=== PATIENT | male | born 1975 | race African-American/Black ===

== ENCOUNTER 2018-09-17 00:32 | Emergency (ER) | payer MEDICAID ==
[~2018-09-17] VITALS: Ht 165.1 cm; Wt 97.5 kg
[2018-09-17 00:39] VITALS: BP 136/86
--- NOTE | 2018-09-17 00:41 | NUR ---
ED Nurse Note: Patient walked in to ER c/o right testicle pain 07/07 x 2 month. AAO x4, VSS at this time, skin is intact warm to touch.
[2018-09-17 01:10] LABS: APPEARANCE,URINE CLEAR; BILIRUBIN, URINE NEGATIVE (NEGATIVE); GLUCOSE, URINE (UA) NEGATIVE (NEGATIVE); KETONES,URINE 1+ (NEGATIVE); LEUKOCYTE ESTERASE ,URINE 1+ (NEGATIVE); NITRITE,URINE NEGATIVE (NEGATIVE); PH,URINE 5 (4.5-8.0); PROTEIN,URINE NEGATIVE (NEGATIVE); UROBILINOGEN,URINE NORMAL MG/DL (0.0-1.0)
[2018-09-17 01:11] LABS: COLOR,URINE YELLOW
[2018-09-17] MEDS ORDERED: IBUPROFEN600 MG ORAL (01:15)
--- NOTE | 2018-09-17 01:16 | Emergency Room Report ---
History of Present Illness General Chief Complaint: Male Urogenital Problems Source: Patient Present Illness HPI This is a 43-year-old male with no past medical history. He presents with chief complaint of right scrotum/testicular pain. This is an ongoing issue for over 7 months. He has been to several ERs for this. He has seen a urologist for this also. Ultrasounds have been negative for torsion. No varicocele or cystocele based on patient description. He has no discharge. Localized to the right side. Complaining of some numbness and decreased sensation on the scrotal aspect. Denies any other complaint. Because of the continued pain he came here for another opinion. Allergies: Coded Allergies: No Known Allergies (Unverified , 09/17/18) Patient History Past Medical History: see triage record, old chart reviewed Past Surgical History: none Pertinent Family History: none Social History: Denies: smoking Immunizations: other Reviewed Nursing Documentation: PMH: Agreed; PSxH: Agreed Nursing Documentation-PMH Past Medical History: No Stated History Review of Systems Eye: Denies: eye pain, blurred vision ENT: Denies: ear pain, nose congestion, throat swelling Respiratory: Denies: cough, shortness of breath Cardiovascular: Denies: chest pain, palpitations Gastrointestinal: Denies: abdominal pain, diarrhea, nausea, vomiting Musculoskeletal: Denies: back pain, joint pain Skin: Denies: rash Neurological: Denies: headache, numbness Endocrine: Denies: increased thirst, increased urine Hematologic/Lymphatic: Denies: easy bruising All Other Systems: negative except mentioned in HPI Physical Exam Vital Signs Date Time Temp Pulse Resp B/P (MAP) Pulse Ox O2 Delivery O2 Flow Rate FiO2 09/17/18 00:34 97.5 86 18 136/86 (103) 98 Room Air Vitals unremarkable Sp02 EP Interpretation: reviewed, normal General Appearance: well appearing, no apparent distress, alert Head: normocephalic, atraumatic Eyes: bilateral eye PERRL, bilateral eye EOMI ENT: hearing grossly normal, normal pharynx Neck: full range of motion, supple, no meningismus Respiratory: chest non-tender, lungs clear, normal breath sounds Cardiovascular #1: regular rate, rhythm, no murmur Gastrointestinal: normal bowel sounds, non tender, no mass, no organomegaly, no bruit, non-distended Genitourinary: normal inspection, penis normal, scrotum normal Musculoskeletal: back normal, gait/station normal, normal range of motion Psychiatric: mood/affect normal Skin: warm/dry Medical Decision Making Diagnostic Impression: Primary Impression: Testicular pain, right ER Course Patient with testicular pain. I see no evidence of any abnormality on exam. Normal cremasteric reflex. No mass palpated. No evidence of any infection. I see no need for ultrasound because patient had them done before. He already seen urologist. Explained to the patient that there is not much more we can do in the ER. We will check to see if there is any UTI. Last Vital Signs Date Time Temp Pulse Resp B/P (MAP) Pulse Ox O2 Delivery O2 Flow Rate FiO2 09/17/18 00:39 97.5 18 136/86 98 Room Air 09/17/18 00:34 86 Status: unchanged Disposition: HOME, SELF-CARE Condition: Stable Scripts Ibuprofen* (MOTRIN*) 600 Mg Tablet 600 MG ORAL THREE TIMES A DAY, #30 TAB 0 Refills Prov: Oscar Ruelas MD 09/17/18 Additional Instructions: Follow-up with your doctor in 7 days. You may need another second opinion from another urologist. Return if worse. Osacr Ruelas MD Sep 17, 2018 01:16
[2018-09-17 01:41] VITALS: BP 136/86
--- NOTE | 2018-09-17 01:42 | NUR ---
ED Nurse Note: Pt cleared by health care Provider for discharge. DC instructions/prescription was given and explained to pt and verbalized understanding of teachings. All medical deviecs such as ID band removed. Pt is AAO x4, ambulatory and left with all personal belongings.
== END 2018-09-17 01:42 | disposition home or self-care (01) ==
LOC: EMR 01:29
DX: N50.811 Right testicular pain (principal)
CPT/HCPCS: 81003; 99283

== ENCOUNTER 2018-11-08 08:37 | Emergency (ER) | payer MEDICAID ==
[~2018-11-08] VITALS: Ht 165.1 cm; Wt 93.0 kg
[~2018-11-08 08:37] MED LIST: IBUPROFEN600 MG ORAL
[2018-11-08 09:00] VITALS: BP 108/70
[2018-11-08] MEDS ORDERED: Isovue-300 100ml vial INJ PRN (09:00)
[2018-11-08] MEDS ORDERED: Ketorolac 30mg Inj IV ONE (09:00)
[2018-11-08] MEDS ORDERED: Morphine Sulfate 4mg/ml Inj (IV USE ONLY) IVP ONE (09:00)
--- NOTE | 2018-11-08 09:05 | NUR ---
ED Nurse Note: pt presents with bloated feeling and left sided abd pain. 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 pt relates he hasnt vomited but occ nausea. pt tolerates lab and iv well.
[2018-11-08 09:13] LABS: APPEARANCE,URINE CLEAR; BILIRUBIN, URINE NEGATIVE (NEGATIVE); COLOR,URINE PALE YELLOW; GLUCOSE, URINE (UA) 1+ (NEGATIVE); KETONES,URINE 1+ (NEGATIVE); LEUKOCYTE ESTERASE ,URINE NEGATIVE (NEGATIVE); NITRITE,URINE NEGATIVE (NEGATIVE); PH,URINE 7 (4.5-8.0); PROTEIN,URINE 1+ (NEGATIVE); UROBILINOGEN,URINE NORMAL MG/DL (0.0-1.0)
[2018-11-08 09:20] LABS: BASOPHILS % (AUTO) 0.4 % (0.0-2.0); EOSINOPHILS % (AUTO) 0.3 % (0.0-3.0); HEMATOCRIT 44.7 % (42.0-52.0); HEMOGLOBIN 15.1 G/DL (14.2-18.0); LYMPHOCYTES % (AUTO) 9.8 % (20.0-45.0); MEAN CORPUSCULAR VOLUME 88 FL (80-99); MONOCYTES % (AUTO) 5.9 % (1.0-10.0); NEUTROPHILS % (AUTO) 83.6 % (45.0-75.0); PLATELET COUNT 214 K/UL (150-450); RED BLOOD COUNT 5.07 M/UL (4.70-6.10); RED CELL DISTRIBUTION WIDTH 11.1 % (11.6-14.8); WHITE BLOOD COUNT 9.4 K/UL (4.8-10.8)
--- NOTE | 2018-11-08 09:20 | Emergency Room Report ---
History of Present Illness General Chief Complaint: Abdominal Pain Source: Patient Present Illness HPI 43-year-old male presents ED for evaluation. Patient complaining of left-sided abdominal pain which started 2 days ago after eating. Pain is sharp, 9 out of 10, nonradiating. States he is tried [id number] medications for "gas" and states they have not helped. Denies fevers or chills. Denies chest pain or shortness of breath. No other aggravating relieving factors. Denies any other associated symptoms Allergies: Coded Allergies: No Known Allergies (Unverified , 09/17/18) Patient History Past Medical History: none Past Surgical History: none Pertinent Family History: none Social History: Denies: smoking, alcohol use, drug use Immunizations: UTD Reviewed Nursing Documentation: PMH: Agreed; PSxH: Agreed Nursing Documentation-PMH Past Medical History: No Stated History Hx Gastrointestinal Problems: Yes - fluid in the scrotum Review of Systems All Other Systems: negative except mentioned in HPI Physical Exam Vital Signs Date Time Temp Pulse Resp B/P (MAP) Pulse Ox O2 Delivery O2 Flow Rate FiO2 11/08/18 08:43 99.0 88 16 108/70 (83) 96 Room Air Sp02 EP Interpretation: reviewed, normal General Appearance: no apparent distress, alert, GCS 15, non-toxic Head: normocephalic, atraumatic Eyes: bilateral eye normal inspection, bilateral eye PERRL ENT: hearing grossly normal, normal pharynx, no angioedema, normal voice Neck: full range of motion, supple/symm/no masses Respiratory: chest non-tender, lungs clear, normal breath sounds, speaking full sentences Cardiovascular #1: regular rate, rhythm, no edema Cardiovascular #2: 2+ carotid (R), 2+ carotid (L), 2+ radial (R), 2+ radial (L) , 2+ dorsalis pedis (R), 2+ dorsalis pedis (L) Gastrointestinal: normal bowel sounds, soft, non-distended, no guarding, no rebound, tenderness - L sided abdomen Rectal: deferred Genitourinary: normal inspection, no CVA tenderness Musculoskeletal: back normal, gait/station normal, normal range of motion, non- tender Neurologic: alert, oriented x3, responsive, motor strength/tone normal, sensory intact, speech normal Psychiatric: judgement/insight normal, memory normal, mood/affect normal, no suicidal/homicidal ideation Reflexes: 3+ bicep (R), 3+ bicep (L), 3+ tricep (R), 3+ tricep (L), 3+ knee (R) , 3+ knee (L) Lymphatic: no adenopathy Medical Decision Making Diagnostic Impression: Primary Impression: Diverticulitis ER Course Hospital Course 43-year-old M presents to ED with lower abdominal pain Differential diagnoses include: appendicitis, diverticulitis, SBO, gastroenteritis Clinical course Patient placed on stretcher. shelter monitor. After initial history and physical I ordered labs, IV fluids, UA, pain medication and CT scan Labs - no leukocytosis, Hb/Hct stable. electrolytes ok. CT abdomen and pelvis - diverticulitis without abscess or perforation Discussed findings with patient. He is nontoxic, afebrile with unremarkable labs. I believe patient could be treated in outpatient setting. Patient agrees with plan. Given Cipro and Flagyl here. States he has a PMD. I feel this is a highly complex case requiring extensive working including EKG/ Rhythm strip, Xray/CT/US, Blood/urine lab work, repeat exams while in ED, and administration of strong opiates/narcotics for pain control, admission to hospital or close patient follow up. Diagnosis - divertculitis stable and discharged to home with prescription for Cipro and Flagyl and Tramadol. Followup with PMD. Return to ED if symptoms recur or worsen Labs Test 11/08/18 09:00 White Blood Count 9.4 K/UL (4.8-10.8) Red Blood Count 5.07 M/UL (4.70-6.10) Hemoglobin 15.1 G/DL (14.2-18.0) Hematocrit 44.7 % (42.0-52.0) Mean Corpuscular Volume 88 FL (80-99) Mean Corpuscular Hemoglobin 29.7 PG (27.0-31.0) Mean Corpuscular Hemoglobin Concent 33.7 G/DL (32.0-36.0) Red Cell Distribution Width 11.1 % (11.6-14.8) Platelet Count 214 K/UL (150-450) Mean Platelet Volume 4.7 FL (6.5-10.1) Neutrophils (%) (Auto) 83.6 % (45.0-75.0) Lymphocytes (%) (Auto) 9.8 % (20.0-45.0) Monocytes (%) (Auto) 5.9 % (1.0-10.0) Eosinophils (%) (Auto) 0.3 % (0.0-3.0) Basophils (%) (Auto) 0.4 % (0.0-2.0) Urine Color Pale yellow Urine Appearance Clear Urine pH 7 (4.5-8.0) Urine Specific [place] 1.005 (1.005-1.035) Urine Protein 1+ (NEGATIVE) Urine Glucose (UA) 1+ (NEGATIVE) Urine Ketones 1+ (NEGATIVE) Urine Blood Negative (NEGATIVE) Urine Nitrite Negative (NEGATIVE) Urine Bilirubin Negative (NEGATIVE) Urine Urobilinogen Normal MG/DL (0.0-1.0) Urine Leukocyte Esterase Negative (NEGATIVE) Urine RBC 0-2 /HPF (0 - 0) Urine WBC 2-4 /HPF (0 - 0) Urine Squamous Epithelial Cells Occasional /LPF Urine Bacteria Few /HPF (NONE) Sodium Level 139 MMOL/L (136-145) Potassium Level 3.6 MMOL/L (3.5-5.1) Chloride Level 101 MMOL/L (98-107) Carbon Dioxide Level 34 MMOL/L (21-32) Anion Gap 4 mmol/L (5-15) Blood Urea Nitrogen 9 mg/dL (7-18) Creatinine 1.5 MG/DL (0.55-1.30) Estimat Glomerular Filtration Rate > 60 mL/min (>60) Glucose Level 131 MG/DL (74-106) Calcium Level 8.7 MG/DL (8.5-10.1) Total Bilirubin 1.1 MG/DL (0.2-1.0) Direct Bilirubin 0.3 MG/DL (0.0-0.3) Aspartate Amino Transf (AST/SGOT) 28 U/L (15-37) Alanine Aminotransferase (ALT/SGPT) 30 U/L (12-78) Alkaline Phosphatase 32 U/L (46-116) Total Protein 7.1 G/DL (6.4-8.2) Albumin 3.3 G/DL (3.4-5.0) Globulin 3.8 g/dL Albumin/Globulin Ratio 0.9 (1.0-2.7) Lipase 127 U/L (73-393) CT/MRI/US Diagnostic Results CT/MRI/US Diagnostic Results : Imaging Test Ordered: CT A/P Impression Acute diverticulitis involving the descending colon. Moderate inflammation. No abscess. Small right inguinal hernia containing fat. Small hiatal hernia. Normal appendix Last Vital Signs Date Time Temp Pulse Resp B/P (MAP) Pulse Ox O2 Delivery O2 Flow Rate FiO2 11/08/18 08:43 99.0 88 16 108/70 (83) 96 Room Air Status: improved Disposition: HOME, SELF-CARE Condition: Stable Scripts Metronidazole* (FLAGYL*) 500 Mg Tablet 500 MG ORAL THREE TIMES A DAY, #21 TAB Prov: Jr La MD 11/08/18 Ciprofloxacin Hcl* (CIPROFLOXACIN HCL*) 500 Mg Tablet 500 MG ORAL Q12H, #14 TAB 0 Refills Prov: Jr La MD 11/08/18 Tramadol Hcl* (ULTRAM*) 50 Mg Tablet 50 MG ORAL Q6H PRN for For Pain, #12 TAB 0 Refills Prov: Jr La MD 11/08/18 Referrals: NON PHYSICIAN (PCP) Jr La MD Nov 08, 2018 09:20
[2018-11-08 09:28] LABS: ANION GAP 4 mmol/L (5-15); BLOOD UREA NITROGEN 9 mg/dL (7-18); CALCIUM 8.7 MG/DL (8.5-10.1); CARBON DIOXIDE 34 MMOL/L (21-32); CHLORIDE 101 MMOL/L (98-107); CREATININE 1.5 MG/DL (0.55-1.30); POTASSIUM 3.6 MMOL/L (3.5-5.1); SODIUM 139 MMOL/L (136-145)
[2018-11-08 09:33] LABS: ALANINE AMINOTRANSFERASE 30 U/L (12-78); ALBUMIN 3.3 G/DL (3.4-5.0); ALBUMIN/GLOBULIN RATIO 0.9 (1.0-2.7); ALKALINE PHOSPHATASE 32 U/L (46-116); ASPARTATE AMINO TRANSFERASE 28 U/L (15-37); BILIRUBIN,TOTAL 1.1 MG/DL (0.2-1.0)
--- NOTE | 2018-11-08 10:04 | NUR ---
ED Nurse Note: pt to ct
[2018-11-08 10:15] LABS: BILIRUBIN,DIRECT 0.3 MG/DL (0.0-0.3)
--- NOTE | 2018-11-08 10:51 | Diagnostic Imaging Report ---
Indication: Abdominal pain Technique: Continuous helical transaxial imaging of the abdomen and pelvis was obtained from the lung bases to the pubic symphysis during intravenous contrast administration. Coronal 2-D reformats were also obtained. Study obtained in a Siemens sensation [address] Automatic Exposure Control was utilized. Total Dose length Product (DLP): 1340.[address] Dose Index Volume (CTDIvol): 26.25 mGy Comparison: None Findings: The lung bases are clear. Small hiatal hernia noted. Stomach is nondistended. There is inflammatory soft tissue stranding in the left lower quadrant of the abdomen associated with diverticula and segment of mild wall thickening involving the descending colon. Findings consistent with acute diverticulitis. There is no abscess identified. The appendix is normal. Bowel gas pattern is nonobstructive. Small right inguinal hernia containing fat demonstrated. Urinary bladder is unremarkable. Solid organs including the liver and spleen, pancreas, adrenal glands and kidneys are unremarkable. IMPRESSION: Acute diverticulitis involving the descending colon. Moderate inflammation. No abscess. Small right inguinal hernia containing fat. Small hiatal hernia. Normal appendix The CT scanner at [facility] is accredited by the [employer] and the scans are performed using dose optimization techniques as appropriate to a performed exam including Automatic Exposure control.
[2018-11-08] MEDS ORDERED: Ciprofloxacin 500mg tab ORAL ONE (11:15)
[2018-11-08] MEDS ORDERED: metroNIDAZOLE 500mg tab ORAL ONE (11:15)
[2018-11-08] MEDS ORDERED: CIPROFLOXACIN500 M2 ORAL (11:18)
[2018-11-08] MEDS ORDERED: METRONIDAZOLE500 MG ORAL (11:18)
[2018-11-08] MEDS ORDERED: TRAMADOL HCL50 MG ORAL (11:18)
[2018-11-08 11:27] VITALS: BP 120/78
--- NOTE | 2018-11-08 11:27 | NUR ---
ER DISCHARGE NOTE: Patient is cleared to be discharged per ERMD, pt is aox4, on room air, with stable vital signs. pt was given dc and prescription instructions, pt was able to verbalize understanding, pt id band and iv site removed without complications. pt is able to ambulate with steady gait. pt took all belongings.
== END 2018-11-08 11:32 | disposition home or self-care (01) ==
LOC: EMR 08:55
DX: K57.92 Diverticulitis of intestine, part unspecified, without perforation or abscess without bleeding (principal); K40.90 Unilateral inguinal hernia, without obstruction or gangrene, not specified as recurrent; K44.9 Diaphragmatic hernia without obstruction or gangrene
CPT/HCPCS: 36415; 74177; 80053; 81003; 82248; 83690; 85025; 96374; 96375; 99284; J1885; J2270; J7040; Q9967; S0028

== ENCOUNTER 2020-02-20 20:14 | Emergency (ER) | payer MEDICAID ==
[~2020-02-20] VITALS: Ht 165.1 cm; Wt 99.8 kg
[~2020-02-20 20:14] MED LIST changes: +CIPROFLOXACIN500 M2 ORAL; +METRONIDAZOLE500 MG ORAL; +TRAMADOL HCL50 MG ORAL
--- NOTE | 2020-02-20 20:45 | NUR ---
ED Nurse Note: Patient walked in to ER from home with c/o foul smelling penile discharge accompanied with erection problems. Patient also c/o rash all over the body and genital area. Patient denies fever and chills, N&V,. Pt is applying anti fungal cream.
--- NOTE | 2020-02-20 20:46 | NUR ---
ED Nurse Note: Urine sent to lab
--- NOTE | 2020-02-20 20:50 | NUR ---
ED Nurse Note: ERPA at bedside
[2020-02-20 21:15] VITALS: BP 135/76
--- NOTE | 2020-02-20 21:17 | Emergency Room Report ---
History of Present Illness General Chief Complaint: Male Urogenital Problems Present Illness HPI 44-year-old male with extensive past medical history here complaining many chronic issues. Patient reports that for the past several months has been feeling numbness in both legs reports that many years ago had a low back injury. Patient has already been seen by primary doctor and told that no acute findings have been found. Patient also complains of toe fungus that is being treated by corrections counselor however wants a second opinion. Patient also has a pruritic rash in penile area and all over body there reports it keeps coming back when the treatment which is a clotrimazole cream is not being used. Patient reports" I want this rash to go away tonight." Also wants complete blood work and wants to consult corrections counselor and orthopedist here in ED. Informed the patient that due to the chronicity of his symptoms patient needs to follow-up primary doctor at this time and will address the patient is presenting to the ED for today and is more concerned about which reports a pruritic rash all over body. Reports that his symptoms started after he was being sexually active with his girlfriend. Repo rts that about a week ago had a penile discharge however has not had since. Denies any scrotal pain, urinary frequency and urgency. Defers treatment for sexually transmitted diseases. Allergies: Coded Allergies: No Known Allergies (Unverified , 09/17/18) COVID-19 Screening Contact w/high risk pt: No Experienced COVID-19 symptoms?: No COVID-19 Testing performed BOOK SALESMAN: No Patient History Past Medical History: see triage record Past Surgical History: none Pertinent Family History: none Reviewed Nursing Documentation: PMH: Agreed; PSxH: Agreed Nursing Documentation-PMH Hx Gastrointestinal Problems: Yes - fluid in the scrotum Review of Systems All Other Systems: negative except mentioned in HPI Physical Exam Vital Signs Date Time Temp Pulse Resp B/P (MAP) Pulse Ox O2 Delivery O2 Flow Rate FiO2 02/20/20 20:44 98.4 92 20 135/76 (95) 96 Room Air Sp02 EP Interpretation: reviewed, normal General Appearance: no apparent distress, alert, GCS 15, non-toxic Head: normocephalic, atraumatic Eyes: bilateral eye normal inspection, bilateral eye PERRL ENT: hearing grossly normal, normal pharynx, no angioedema, normal voice Neck: full range of motion, supple/symm/no masses Respiratory: chest non-tender, lungs clear, normal breath sounds, speaking full sentences Cardiovascular #1: regular rate, rhythm, no edema Cardiovascular #2: 2+ carotid (R), 2+ carotid (L), 2+ radial (R), 2+ radial (L), 2+ dorsalis pedis (R), 2+ dorsalis pedis (L) Gastrointestinal: soft Genitourinary: no CVA tenderness, penis normal, scrotum normal, other - Macular white rashes penile glan Neurologic: alert, motor strength/tone normal, oriented x3, sensory intact, responsive, speech normal Psychiatric: judgement/insight normal, memory normal, mood/affect normal, no suicidal/homicidal ideation Skin: rash - Tinea versicolor all over body Lymphatic: no adenopathy Medical Decision Making PA Attestation All my diagnosis and treatment plans were reviewed ad discussed with my supervising physician Dr. Siddiqi Diagnostic Impression: Primary Impression: Tinea Additional Impressions: Toenail fungus Back pain associated with peripheral numbness Tinea versicolor ER Course 44-year-old male with extensive past medical history here complaining many chronic issues. Patient reports that for the past several months has been feel ing numbness in both legs reports that many years ago had a low back injury. Patient has already been seen by primary doctor and told that no acute findings have been found. Patient also complains of toe fungus that is being treated by corrections counselor however wants a second opinion. Patient also has a pruritic rash in penile area and all over body there reports it keeps coming back when the treatment which is a clotrimazole cream is not being used. Patient reports" I want this rash to go away tonight." Also wants complete blood work and wants to consult corrections counselor and orthopedist here in ED. Informed the patient that due to the chronicity of his symptoms patient needs to follow-up primary doctor at this time and will address the patient is presenting to the ED for today and is more concerned about which reports a pruritic rash all over body. Reports that his symptoms started after he was being sexually active with his girlfriend. Reports that about a week ago had a penile discharge however has not had since. Denies any scrotal pain, urinary frequency and urgency. Defers treatment for sexually transmitted diseases. Ddx considered but are not limited to: Eczema, scabies, lice, tinea corporis, tinea versicolor, to pubis, Vital signs: are WNL, pt. is afebrile H&PE are most consistent with: Tinea versicolor versus corporis, toenail fungus, back pain associated peripheral numbness chronic ORDERS: Ketoconazole cream, Lotrimin cream, prednisone oral ED INTERVENTIONS: None required at this time. I examined the patient with my nurse, Tony present in the room DISCHARGE: At this time pt. is stable for d/c to home. Will provide printed pat ient care instructions, and any necessary prescriptions. Care plan and follow up instructions have been discussed with the patient prior to discharge. Patient follow primary care provider for MRI of lower back for further evaluation and also for corrections counselor regarding toenail fungus and liver function testing for possibility of start of oral medication, also dermatology referral needed upon request of primary care provider. If worsening symptoms return to the emergency room Last Vital Signs Date Time Temp Pulse Resp B/P (MAP) Pulse Ox O2 Delivery O2 Flow Rate FiO2 02/20/20 20:44 98.4 92 20 135/76 (95) 96 Room Air Disposition: HOME, SELF-CARE Scripts Ketoconazole (Ketoconazole) 15 Gm Cream..g. 1 APPLIC TOPIC BID, #15 APPLIC Prov: Praveen Keith 02/20/20 Clotrimazole* (LOTRIMIN*) 15 Gm Cream..g. 1 APPLIC TOPIC TWICE A DAY, #15 GM Prov: Praveen Keith 02/20/20 Prednisone* (PREDNISONE*) 20 Mg Tablet 40 MG ORAL DAILY for 5 Days, #10 TAB Prov: Praveen Keith 02/20/20 Patient Instructions: Athlete's Foot-SportsMed, Body Ringworm, Tinea Versicolor, [id number] Additional Instructions: Take medication as directed, follow primary doctor for MRI of lumbar area due to chronicity of your leg numbness x2 months. Also have primary doctor sent you to senior sales operations manager due to recurrences of your body and inguinal rash. Also her corrections counselor do a liver function test prior to start of oral medication for toe fungus as the medication can be very bad for your liver. If worsening symptoms return to the emergency room Praveen Keith Feb 20, 2020 21:17
[2020-02-20] MEDS ORDERED: CLOTRIMAZOLE15 GM TOPIC (21:19)
[2020-02-20] MEDS ORDERED: NIZORAL 2% C1 APPLIC TOPIC (21:19)
[2020-02-20] MEDS ORDERED: PREDNISONE20 MG ORAL (21:19)
--- NOTE | 2020-02-20 21:25 | NUR ---
ER DISCHARGE NOTE: Patient is cleared to be discharged per ERMD, pt is aox4, on room air, with stable vital signs. pt was given dc and prescription instructions, pt was able to verbalize understanding, pt id band removed. pt is able to ambulate with steady gait. pt took all belongings.
== END 2020-02-20 21:30 | disposition home or self-care (01) ==
LOC: EMR 20:35
DX: B36.0 Pityriasis versicolor (principal); B35.1 Tinea unguium; M54.9 Dorsalgia, unspecified; R20.0 Anesthesia of skin
CPT/HCPCS: 99282